=== PATIENT | male | born 1990 | race African-American/Black ===

== ENCOUNTER 2019-07-18 22:00 | Emergency (ER) | payer OTHER ==
[~2019-07-18] VITALS: Ht 167.6 cm; Wt 84.1 kg
[2019-07-18 22:08] VITALS: Ht 167.6 cm; Wt 84.1 kg
[2019-07-18 22:47] LABS: BASOPHILS 0.4 % (0-2); EOSINOPHILS 2.2 % (0-7); HEMATOCRIT 44.2 % (42.0-54.0); HEMOGLOBIN 15.1 g/dL (13.5-17.5); LYMPHOCYTES 35.4 % (15-50); MCH 27.6 pg (26.0-34.0); MCHC 34.2 g/dL (31.0-37.0); MCV 80.8 fL (80.0-100.0); MONOCYTES 9.1 % (2-11); NEUTROPHILS 52.9 % (40-80); PLATELET COUNT 218 10x3/uL (130-400); RBC 5.47 10x6/uL (4.20-6.10); RDW 14.5 % (11.5-14.5); WBC 9.1 10x3/uL (4.8-10.8)
[2019-07-18 22:48] LABS: APPEARANCE CLEAR (CLEAR); BILIRUBIN NEGATIVE (NEGATIVE); COLOR YELLOW (YELLOW); GLUCOSE NEGATIVE (NEGATIVE); KETONE NEGATIVE (NEGATIVE); NITRITE NEGATIVE (NEGATIVE); PROTEIN NEGATIVE (NEGATIVE); UROBILINOGEN NORMAL (NORMAL)
[2019-07-18 22:56] LABS: UDS - AMPHET NEGATIVE QUAL (NEGATIVE); UDS - BARB NEGATIVE QUAL (NEGATIVE); UDS - BENZO NEGATIVE QUAL (NEGATIVE); UDS - COCAINE NEGATIVE QUAL (NEGATIVE); UDS - OPIATE NEGATIVE QUAL (NEGATIVE); UDS - PCP NEGATIVE QUAL (NEGATIVE); UDS - THC POSITIVE QUAL (NEGATIVE)
[2019-07-18 22:57] LABS: CALC OSMOLALITY 272 mosm/kg (275-300); CALCIUM 9.4 mg/dL (8.5-10.1); CARBON DIOXIDE 28.6 mmol/L (21.0-32.0); CHLORIDE - SERUM 102 mmol/L (98-107); CREATININE - SERUM 1.1 mg/dL (0.6-1.3); GLUCOSE 94 mg/dL (74-106); POTASSIUM - SERUM 3.7 mmol/L (3.5-5.1); SODIUM 136 mmol/L (136-145); UREA NITROGEN 16 mg/dL (7-18); eGFR NON AFRICAN AMERICAN 84 mL/min (90-120)
--- NOTE | 2019-07-18 22:57 | NUR ---
DR NATION NOTIFIED AND SITTER ORDERED. SITTER AT BEDSIDE. NOTIFIED CHARGE NURSE AMD ATTENDING IN REGARDS TO ASSESSMENT FINDINGS. RESOURCES GIVEN TO PT AND SAFETY PLAN INITIATED.
[2019-07-18 23:03] LABS: ALBUMIN 4.1 g/dL (3.4-5.0); ALKALINE PHOSPHATASE 44 U/L (46-116); ALT (SGPT) 41 U/L (10-68); BILIRUBIN - TOTAL 0.22 mg/dL (0.2-1.3); PROTEIN - SERUM 7.6 g/dL (6.4-8.2)
[2019-07-19 03:00] VITALS: BP 126/73
== END 2019-07-19 03:00 ==
LOC: D.ER 22:00
PROVIDERS: Family Medicine
DX: F23 Brief psychotic disorder (principal)